=== PATIENT | female | born 1955 | race Caucasian/White ===

== ENCOUNTER 2018-10-07 21:43 | Emergency (ER) | payer BC ==
[2018-10-07] MEDS ORDERED: RANITIDINE 50 MG/2 ML VIAL IVP ONE (21:53)
[2018-10-07] MEDS ORDERED: methylPREDNISolone SOD SUCC 125 MG/2 ML VIAL IVP ONE (21:53)
[2018-10-07] MEDS ORDERED: NS 1,000 ML IV ONE (21:53)
--- NOTE | 2018-10-07 21:53 | EDPHY ---
Addendum entered and electronically signed by Sandra Hodges PAC 10/08/18 00:08: Monitored in the emergency room with complete relief of symptoms. No signs of anaphylaxis or angioedema. Original Note: H & P Source: Patient, Family (), EMS Exam Limitations: No limitations Time Seen by Provider: 10/07/18 21:49 HPI/ROS: HPI: This is a 63-year-old female who presents with Chief Complaint: Allergic Reaction to amoxicillin Location: Skin Quality: Rash Duration: 1 hr prior to arrival Signs and Symptoms: no shortness of breath at rest, no shortness of breath on exertion, no cough, no chest pain, no palpitations, no lower extremity edema, no wheezing, no orthopnea, no paroxysmal nocturnal dyspnea, no fever, no injury/ trauma, no hemoptysis, no carpal pedal spasms, + nausea, + vomiting Timing: Rapid Onset Severity: Moderate Context: Patient presents via EMS with sudden onset of itching that started on her torso and quickly spread to her entire body followed by rash and then nausea with 1 episode of vomiting. Patient ingested amoxicillin approximately 1 and 0.5 hr prior to arrival with negative rapid strep test for "antibiotic prophylaxis as she is here visiting for her son-in-law's college graduation." She has no history of angioedema, anaphylaxis. She has drank 2 glasses of wine this evening. Denies any drug use or new foods/detergents/lotions. Modifying Factors: EMS started IV fluids and gave IV Zofran 4 mg Comment: ROS: A comprehensive 10 system review of systems is otherwise negative aside from elements mentioned in the history of present illness. MEDICAL/SURGICAL/SOCIAL HISTORY: Medical history: Hypothyroidism, hypertension Surgical history: Denies Social history: with children. Nonsmoker. Lives in [place]. CONSTITUTIONAL: Slightly anxious but nontoxic-appearing elderly white female, at bedside, awake and alert, no obvious distress HEENT: Atraumatic and normocephalic, PERRL, EOMI. Nares patent; no rhinorrhea; no nasal mucosal edema. Tympanic membranes clear. Oropharynx clear, no postpharyngeal edema, no exudate and moist pink mucosa. Facial swelling. No lip swelling. No tongue swelling. Airway patent. No lymphadenopathy. No meningismus. Cardiovascular: Normal S1/S2, regular rate, regular rhythm, without murmur rub or gallop. PULMONARY/CHEST: Symmetrical and nontender. Clear to auscultation bilaterally. Good air movement. No accessory muscle usage. No upper airway transmitted sounds. ABDOMEN: Soft, nondistended, nontender, no rebound, no guarding, no peritoneal signs, no masses or organomegaly. No CVAT. EXTREMITIES: 2/2 pulses, strength 5/5, no deformities, no clubbing, no cyanosis or edema. NEUROLOGICAL: no focal neuro deficits. GCS 15. SKIN: Warm and dry, pruritic light pink rash noted on torso that blanches with palpation; no vesicles, no petechiae. Good capillary refill. (Sandra Hodges) Constitutional: Initial Vital Signs Temperature (C) 36.4 C 10/07/18 21:51 Heart Rate 80 10/07/18 21:51 Respiratory Rate 18 10/07/18 21:51 Blood Pressure 141/87 H 10/07/18 21:51 O2 Sat (%) 98 10/07/18 21:51 O2 Delivery Mode Room Air O2 (L/minute) 2 Allergies/Adverse Reactions: No Known Allergies Allergy (Unverified 10/07/18 21:51) Home Medications: Medication Instructions Recorded Altace 10/07/18 Synthroid 10/07/18 Medical Decision Making ED Course/Re-evaluation: Vital signs reviewed and stable upon arrival. Placed on bus monitor. Maintaining airway and no signs of angioedema, anaphylaxis. Given 1 L normal saline, IV Solu-Medrol, IV Benadryl, IV Zantac Monitored for 2 hr in the emergency room, This patient was seen under the supervision of my secondary supervising physician. I evaluated and cared for this patient independently. (Sandra Hodges) PHYSICIAN DOCUMENTATION: The patient was evaluated and managed by the Physician Tile Machine Operator. My co- signature indicates that I have reviewed this chart and I agree with the findings and plan of care as documented. I am the secondary supervising physician. (Africa Foreman) Differential Diagnosis: Differential diagnosis includes but is not limited to allergic reaction, angioedema, C1 esterase deficiency, mast cell activation, adverse medication reaction. (Sandra Hodges) - Data Points Medications Given: Discontinued Medications Diphenhydramine HCl (Benadryl Injection) 50 mg IVP EDNOW ONE Stop: 10/07/18 21:54 Last Admin: 10/07/18 22:03 Dose: 50 mg Sodium Chloride (Ns) 1,000 mls @ 0 mls/hr IV ONCE ONE; Wide Open PRN Reason: Protocol Stop: 10/07/18 21:54 Last Admin: 10/07/18 22:03 Dose: 1,000 mls Methylprednisolone Sodium Succinate (Solu-Medrol) 125 mg IVP EDNOW ONE Stop: 10/07/18 21:54 Last Admin: 10/07/18 22:05 Dose: 125 mg Ranitidine HCl (Zantac) 50 mg IVP EDNOW ONE Stop: 10/07/18 21:54 Last Admin: 10/07/18 22:06 Dose: 50 mg Departure - Departure Disposition: Home, Routine, Self-Care Clinical Impression: Allergy to amoxicillin Condition: Good Instructions: Antibiotic Medication Allergy (ED) Additional Instructions: Rest as much as possible until you are feeling better. Take Benadryl 25-50 mg every 4-6 hours as needed for itching, allergic reaction. Please add amoxicillin to your allergy list and do not take any penicillins. Return at once for any worsening symptoms or concerns. Referrals: Patient,NotPresent [Unknown] - As per Instructions [facility],. [Clinic] - As per Instructions
[2018-10-08 00:15] VITALS: BP 130/81
== END 2018-10-08 00:17 | disposition home or self-care (01) ==
DX: R21 Rash and other nonspecific skin eruption (principal); T36.0X5A Adverse effect of penicillins, initial encounter; E86.9 Volume depletion, unspecified; I10 Essential (primary) hypertension; E03.9 Hypothyroidism, unspecified
CPT/HCPCS: 96374; J1200; J2780; J2930